=== PATIENT | female | born 1990 | race African-American/Black ===

== ENCOUNTER 2017-01-01 11:34 | Emergency (ER) | payer MEDICAID ==
[~2017-01-01] VITALS: Ht 167.6 cm; Wt 83.5 kg
[2017-01-01 11:42] VITALS: BP 114/74
[2017-01-01 12:33] LABS: Basophils # (auto) 0 uL; Basophils % (auto) 0.4 % (0.0-2.0); CONDITION Y; Eosinophils # (auto) 0.1 uL; Eosinophils % (auto) 1.1 % (0.0-7.0); Hematocrit 38.9 % (36.0-46.0); Hemoglobin 12.9 g/dL (12.2-16.2); Lymphocytes # (auto) 2.1 uL; Mean Corpuscular Hemoglobin 27.2 pg (28.0-32.0); Mean Corpuscular Volume 82.3 fL (80.0-100.0); Monocytes # (auto) 0.7 uL; Monocytes % (auto) 8.7 % (0.0-12.0); Neutrophils # (auto) 4.9 uL; Neutrophils % (auto) 62.8 % (37.0-80.0); Platelet Count (auto) 300 10^3/uL (140-450); Red Cell Distribution Width 13.8 % (11.6-16.0); White Blood Cell 7.7 10^3/uL (4.4-10.8)
[2017-01-01 12:48] LABS: Albumin 3.6 g/dL (3.4-5.0); BUN/Creatinine Ratio 9.7; Calcium 8.6 mg/dL (8.5-10.1); Potassium 3.4 mmol/L (3.5-5.1)
[2017-01-01 12:51] LABS: Bilirubin, Total 0.4 mg/dL (0.2-1.0); Total Protein 7.3 g/dL (6.4-8.2)
== END 2017-01-01 15:23 | disposition home or self-care (01) ==
LOC: ER 11:34
DX: O34.81 Maternal care for other abnormalities of pelvic organs, first trimester (principal); N83.209 Unspecified ovarian cyst, unspecified side; Z3A.13 13 weeks gestation of pregnancy
CPT/HCPCS: 36415; 76801; 80053; 81002; 84702; 85025

== ENCOUNTER 2021-01-01 09:19 | Emergency (ER) | payer MEDICAID ==
[~2021-01-01] VITALS: Ht 167.6 cm; Wt 65.8 kg
[2021-01-01 09:25] VITALS: BP 116/75
[2021-01-01] MEDS: ONDANSETRON ODT 4 MG TAB PO ONE (10:42)
[2021-01-01] MEDS: cefTRIAXone SOD 1,000 MG VL IM ONE (10:42)
== END 2021-01-01 11:57 | disposition home or self-care (01) ==
LOC: ER 09:19
DX: U07.1 COVID-19 (principal); M79.10 Myalgia, unspecified site
CPT/HCPCS: 36415; 71045; 87426; 96372; 99284; J0696; Q0162

== ENCOUNTER 2022-06-09 17:07 | Emergency (ER) | payer MEDICAID ==
[~2022-06-09] VITALS: Ht 167.6 cm; Wt 72.9 kg
[2022-06-09] MEDS ORDERED: IBUP600T27 PO (18:28)
[2022-06-09] MEDS ORDERED: AMOX875T3 PO (18:28)
[2022-06-09 18:47] VITALS: BP 130/93
== END 2022-06-09 18:56 | disposition home or self-care (01) ==
LOC: ER 17:07
DX: J03.90 Acute tonsillitis, unspecified (principal); R51.9 Headache, unspecified